=== PATIENT | female | born 1965 | race Caucasian/White ===

== ENCOUNTER 2021-10-23 12:54 | Emergency (ER) | payer OTHER ==
[2021-10-23] MEDS ORDERED: HYDROCODON-ACE1 EAC4 PO ×2 (18:22→18:46)
[2021-10-23] MEDS ORDERED: NAPROSYN500 MG PO (18:49)
== END 2021-10-23 19:03 | disposition home or self-care (01) ==
LOC: ER1 12:54
DX: M54.12 Radiculopathy, cervical region (principal); M54.6 Pain in thoracic spine; E78.5 Hyperlipidemia, unspecified; F17.200 Nicotine dependence, unspecified, uncomplicated; Z88.2 Allergy status to sulfonamides
CPT/HCPCS: 72125; 93005; 96372; 99284; J1100; J1170; J1885